=== PATIENT | male | born 1980 | race Caucasian/White ===

== ENCOUNTER → 2016-11-23 | Outpatient (CLI) | payer OTHER ==
[~2016-11-23] MED LIST: B-COTAB18 PO; CHLO50TA PO; CMPS25 PR; HYG/25 PO; METO25TA3 PO; METO50TA7 PO; OMEG10007 PO; TRAZ50TA35 PO; VITACAP37 PO
--- NOTE | 2016-11-23 07:56 | DIAGNOSTIC IMAGING REPORT ---
ABDOMEN COMPLETE (US) CLINICAL HISTORY: Epigastric pain, fatigue, vomiting. COMPARISON STUDY: No previous studies for comparison. FINDINGS: The pancreas appears sonographically normal. The gallbladder appears sonographically normal. There is no ductal dilatation. The common bile duct measures 4 mm. The spleen measures 9.8 cm in length. There is no evidence of abdominal aortic dilatation. The liver is of slightly increased echogenicity, nonspecific finding most often seen in hepatic steatosis. There are no focal hepatic masses. There is a horseshoe kidney. No renal masses are visualized. There is no hydronephrosis. IMPRESSION: 1. Horseshoe kidney 2. Ultrasonographically normal gallbladder and pancreas 3. Slight increase in hepatic echogenicity, a finding which may indicate hepatic steatosis. 4. No evidence of ductal dilatation Electronically signed by: Rm Dean M.D. 11/23/2016 7:54 AM Dictated Date/Time: 11/23/2016 7:52 AM
== END | disposition home or self-care (01) ==
LOC: C.ULTR 06:54
PROVIDERS: ATTEND Internal Medicine Gastroenterology
DX: R11.10 Vomiting, unspecified (principal); R53.83 Other fatigue; R10.13 Epigastric pain; R79.89 Other specified abnormal findings of blood chemistry; Q63.1 Lobulated, fused and horseshoe kidney

== ENCOUNTER → 2016-12-08 | Day surgery (SDC) | payer OTHER ==
[~2016-12-08] VITALS: Ht 185.4 cm; Wt 78.0 kg
[~2016-12-08] MED LIST changes: +ACETAMINOPHEN 500 MG TAB PO PRN; -CMPS25 PR; -TRAZ50TA35 PO
[2016-12-08 09:40] VITALS: BP 116/71; PULSE 72; TEMP 36.8; O2SAT 97; Ht 185.4 cm; Wt 78.0 kg
--- NOTE | 2016-12-08 11:16 | Discharge Instructions ---
Discharge Instructions Procedure Procedure Date: Dec 08, 2016. Reason for visit: Abnormal Liver Function Tests. Discharge Discharge Date: Dec 08, 2016. Discharge Diagnosis: Abnormal liver function tests Instructions Activity Recommendations: 1 Day-May resume regular activity Return to School/Work: no limitations Recommended Home Diet: Resume Previous Diet Allergies Coded Allergies: Shrimp (Verified Allergy, Unknown, HIVES, 12/08/16) Shanta Berry Recommendations: Call your doctor if: * Temperature above 101 degrees * Pain not relieved by pain medicine ordered * There is increased drainage or redness from any incision * You have any unanswered questions or concerns. Your Doctors Instructions noted above were prepared by provider Rm Dean. Patient Signature Section: Patient Instructions Signature Page Paul Irene Patient (or Guardian) Signature/Date: I have read and understand the instructions given to me by my caregivers. Caregiver/RN/Doctor Signature/Date: The above-named patient and/or guardian has received patient instructions on this date. + Original Patient Signature Page (only) stays with chart. Please make copy for patient.
[2016-12-08 11:25] VITALS: BP 126/71; PULSE 68; TEMP 37; O2SAT 99
[2016-12-08 11:39] VITALS: BP 129/66; PULSE 67; O2SAT 97
--- NOTE | 2016-12-08 11:39 | DIAGNOSTIC IMAGING REPORT ---
ULTRASOUND-GUIDED HEPATIC CORE BIOPSY CLINICAL HISTORY: Abnormal liver function tests. COMPARISON STUDY: Ultrasound dated 11/23/2016 FINDINGS: The risks of the procedure were explained to the patient. Informed consent was obtained. The patient was prepped in a sterile fashion. The skin was anesthetized 1% lidocaine. A right lobe approach was utilized with ultrasound guidance. 2 samples utilizing 18-gauge spring-loaded 2 cm throw biopsy needle were performed. There were no immediate complications. IMPRESSION: Successful 18-gauge hepatic core biopsy. Electronically signed by: Rm Dean M.D. 12/08/2016 11:37 AM Dictated Date/Time: 12/08/2016 11:36 AM
[2016-12-08 11:56] VITALS: BP 123/68; PULSE 72; O2SAT 97
[2016-12-08 12:26] VITALS: BP 122/73; PULSE 76; O2SAT 97
[2016-12-08 13:22] VITALS: BP 124/74; PULSE 75; TEMP 36.9; O2SAT 97
== END | disposition home or self-care (01) ==
LOC: C.ACU 09:08
PROVIDERS: ATTEND Internal Medicine Gastroenterology
DX: K75.81 Nonalcoholic steatohepatitis (NASH) (principal)

== ENCOUNTER 2017-03-18 07:13 | Emergency (ER) | payer OTHER ==
[~2017-03-18] VITALS: Ht 185.4 cm; Wt 91.1 kg
[~2017-03-18 07:13] MED LIST changes: -ACETAMINOPHEN 500 MG TAB PO PRN; -B-COTAB18 PO; -HYG/25 PO; -METO50TA7 PO; -OMEG10007 PO; -VITACAP37 PO
[2017-03-18 07:17] VITALS: TEMP 36.7; Ht 185.4 cm; Wt 91.1 kg
[2017-03-18] MEDS ORDERED: ERYTHROMYCIN OP OINT 5 MG/GM 3.5 GM TUBE OP ONE (07:45)
[2017-03-18 07:51] VITALS: BP 128/80; PULSE 70; O2SAT 97
--- NOTE | 2017-03-18 17:08 | EMERGENCY ROOM VISIT NOTE ---
History First contact with patient: 07:22 Chief Complaint: EYE ASSESSMENT Stated Complaint: LUMP UNDER EYE History of Present Illness The patient is a 36 year old white male who presents to the Emergency Room with complaints of discomfort and swelling under his left eye. He denies any drainage. He feels as though there may be a small lump under the eyelid. No trauma that he is aware of. He denies any change in vision. He does have seasonal allergies and is unsure if it is related. He does take Flonase but no other allergy medicine. The eye is not itchy. He is leaving for a trip and just wanted to be sure that the eye is fine. he noted some mild swelling under the right eye as well but there is no tenderness and he does not feel the lump. He denies rubbing his eyes and denies putting anything in the eyes. Review of Systems REVIEW OF SYSTEM: HEENT: No dizziness, visual problems, hearing loss, or tinnitus. There is no difficulty swallowing and no oral lesions are present. PULMONARY: No cough, shortness of breath, sputum production or hemoptysis. CARDIOVASCULAR: No chest pain, palpitations, shortness of breath or peripheral edema. GASTROINTESTINAL: No diarrhea, constipation, nausea, vomiting, or abdominal pain. GENITOURINARY: No dysuria, frequency, urgency or nocturia. NEUROLOGIC: No weakness, muscle tenderness, epilepsy or history of neurological problems. MUSCULOSKELETAL: No history of joint tenderness/swelling. No history of arthritis or arthralgias. SKIN: No rashes or lesions. ENDOCRINE: No history of diabetes, thyroid disorders, or abnormal hair growth. Past Medical/Surgical History Medical Problems: (1) Hypertension Previous surgeries: Surgery 2, left knee surgery 3, right knee surgery 1. Last tetanus 2012 Family History Unremarkable. Parents are living. Social History Smoking Status: Former Smoker Smokeless Tobacco Use: No Alcohol Use: none Drug Use: none Marital Status: Housing Status: lives with significant other Occupation Status: employed Current/Historical Medications Scheduled Chlorthalidone (Chlorthalidone), 50 MG PO DAILY Metoprolol Succ (Toprol Xl) (Toprol-Xl), 25 MG PO DAILY Allergies Coded Allergies: Shrimp (Verified Allergy, Unknown, HIVES, 12/08/16) Physical Exam Vital Signs Date Time Temp Pulse Resp B/P Pulse Ox O2 Delivery O2 Flow Rate FiO2 03/18/17 07:51 70 16 128/80 97 03/18/17 07:17 36.7 70 16 128/80 97 Room Air Right Eye Acuity: 20/30 Left Eye Acuity: 20/30 Pain Rating (0-10): 0 Physical Exam Gen.: Well developed, well-nourished, young white male, in no acute distress. Sitting on a bed. Alert and oriented. Skin:Warm and dry with good turgor. No rashes or lesions. No ecchymosis or erythema. The patient is not diaphoretic. No abrasions. Mild edema present underneath the left eye. There is also similar edema under the right eye, though not as pronounced. No warmth. No palpable mass or lump in the lower lid. No visible stye in the upper lid. HEENT: Normocephalic atraumatic. Eyes PERRLA, EOMI. No conjunctiva or scleral injection. Lids were gently everted. No stye is visible. Funduscopic exam reveals normal vasculature and a healthy looking eye. Visual acuity is 20/30. No current drainage or visible foreign material. Lymphatics are palpated without anterior or posterior chain enlargement or tenderness. Medical Decision & Procedures Medications Administered Medications (Trade) Dose Ordered Sig/Claude Route Start Time Stop Time Status Last Admin Dose Admin Erythromycin (Erythromycin Oph Oint) 1 appln NOW ONCE OP 03/18/17 07:45 03/18/17 07:46 DC 03/18/17 07:51 1 APPLN ED Course Patient was educated regarding today's findings. Conservative care measures were discussed. Possibility of a stye in the lower lid was discussed. His symptoms may also be allergy related. He should continue with his Flonase. He may add Claritin or Zyrtec if desired. I will start him on erythromycin ophthalmic ointment in the lower lid in case there is a infectious aspect of this. He'll use 1/4 inch and lower lid 3 times a day for 5 days. Follow-up with his eye doctor or return to the ED for any acute worsening of symptoms. Warm compresses to the eye may promote drainage. Tylenol and Motrin every 6 hours as needed for mild discomfort. Medical Decision Possibility of retained foreign body, sty, conjunctivitis, periorbital cellulitis, allergic reaction, edema from rubbing, and blepharitis were considered, among others Impression Primary Impression: Periorbital edema of left eye Departure Information Dispostion Home / Self-Care Condition GOOD Forms WORK / SCHOOL INSTRUCTIONS, HOME CARE DOCUMENTATION FORM, MOTRIN USE, IMPORTANT VISIT INFORMATION Patient Instructions [facility] Additional Instructions start erythromycin ointment 1/4 inch in the lower lid 3 x day x 5 days warm compresses to the eye several times per day follow up with your eye doctor or return to the ED for re-exam if the swelling or pain become worse start zyrtec or claritin once daily for seasonal allergy relief. They may also reduce your periorbital swelling avoid rubbing the lower lid, as this may increase the swelling
[2017-05-12] MEDS ORDERED: HYG/25 PO (13:39)
[2017-05-12] MEDS ORDERED: METO50TA7 PO (13:39)
[2017-05-12] MEDS ORDERED: OMEG10007 PO (13:39)
[2017-05-12] MEDS ORDERED: B-COTAB18 PO (13:39)
[2017-05-12] MEDS ORDERED: VITACAP37 PO (13:39)
== END 2017-03-18 07:51 | disposition home or self-care (01) ==
LOC: C.EDB 07:14 → C.EDA 07:51
DX: H02.845 Edema of left lower eyelid (principal); I10 Essential (primary) hypertension; Z87.891 Personal history of nicotine dependence; Z79.899 Other long term (current) drug therapy

== ENCOUNTER → 2017-04-13 | Outpatient (CLI) | payer OTHER ==
[~2017-04-13] MED LIST changes: +B-COTAB18 PO; +HYG/25 PO; +METO50TA7 PO; +OMEG10007 PO; +VITACAP37 PO
--- NOTE | 2017-04-13 13:42 | DIAGNOSTIC IMAGING REPORT ---
RIGHT KNEE 4 OR MORE CLINICAL HISTORY: RIGHT KNEE PAIN Right pain COMPARISON: None. DISCUSSION: Mild degenerative change all major joint compartments. Moderate degenerative change medial joint compartment left knee. Minimal osteophytic reaction at the level of tibial spines. No significant joint effusion. There is no evidence for soft tissue swelling. IMPRESSION: Mild degenerative change. No acute process. Electronically signed by: Vinicio Hua M.D. 04/13/2017 1:41 PM Dictated Date/Time: 04/13/2017 1:40 PM
== END | disposition home or self-care (01) ==
LOC: C.RDSM 15:26
PROVIDERS: ATTEND Physician Assistant
DX: M25.561 Pain in right knee (principal)

== ENCOUNTER → 2017-05-08 | Outpatient (CLI) | payer OTHER ==
--- NOTE | 2017-05-08 08:14 | DIAGNOSTIC IMAGING REPORT ---
RIGHT LOWER EXT JOINT WITHOUT HISTORY:36 years Male presents with acute medial right knee pain with history of prior arthroscopy. COMPARISON: Radiographs of the right knee 04/13/2017. TECHNIQUE: Multiplanar, multisequence MRI of the right knee was performed without intravenous contrast. FINDINGS: MENISCI: There is slightly increased signal within the posterior horn lateral meniscus without extension to an articular surface compatible with intrameniscal degeneration. Linear increased PD signal of the anterior horn lateral meniscus extending to the superior articular surface, well seen on image 6 of the sagittal series and image 12 of the coronal series suggests small oblique tear without displaced fragment or para meniscal cyst. There is a large horizontal undersurface tear of the posterior horn medial meniscus extending into the posterior root and posterior junction with mild associated peridiscal edema. Displaced fragment is noted within the intercondylar groove anterior to the PCL as seen on image 13 of the sagittal PD series (bucket-handle tear). Additionally, there is a small free edge tear of the anterior horn medial meniscus nicely seen on image 11 of the coronal PD series. CRUCIATE LIGAMENTS: The anterior and posterior cruciate ligaments are normal in signal, morphology and course. COLLATERAL LIGAMENTS: The popliteus tendon, biceps femoris tendon, fibular collateral ligament and iliotibial band are intact. The superficial and deep components of the medial collateral ligament are intact. EXTENSOR MECHANISM: The quadriceps and patellar tendons are intact.The medial and lateral patellar retinacula are intact. There is increased signal the suprapatellar fat nicely seen on image 10 of the sagittal T2 series suggesting fat pad impingement. KNEE JOINT: There is a moderate-sized knee joint effusion. Low to intermediate grade chondral fissuring involves the posterior weightbearing portion of the lateral femoral condyle. No osteochondral defect or high-grade chondromalacia. BONE MARROW: There is a focal area of moderate bone marrow edema involving the lateral aspect of the lateral tibial plateau. No associated fracture line. SOFT TISSUES: There is trace amount of fluid within the deep pre-patellar bursa. IMPRESSION: 1. Large horizontal undersurface tear of the posterior horn medial meniscus extends into the meniscal root and posterior junction. Displaced fragment is present within the posterior intercondylar notch (bucket-handle tear). 2. Moderate focal bone marrow edema involving the posterior lateral aspect of the lateral tibial plateau suggests bone contusion without fracture identified. 3. Suggested small oblique tear of the anterior horn lateral meniscus. 4. Free edge tear of the anterior horn medial meniscus. 5. Moderate-sized joint effusion. Electronically signed by: Sriram Solano 05/08/2017 8:13 AM Dictated Date/Time: 05/08/2017 7:58 AM
== END | disposition home or self-care (01) ==
LOC: C.MRIBC 06:46
PROVIDERS: ATTEND Physical Medicine & Rehabilitation Sports Medicine
DX: S83.241D Other tear of medial meniscus, current injury, right knee, subsequent encounter (principal); X58.XXXD Exposure to other specified factors, subsequent encounter; M25.461 Effusion, right knee

== ENCOUNTER → 2017-05-16 | Day surgery (SDC) | payer OTHER ==
[2017-05-12 13:39] VITALS: Ht 185.4 cm; Wt 81.8 kg
[~2017-05-16] VITALS: Ht 185.4 cm; Wt 81.8 kg
[~2017-05-16] MED LIST changes: +ATROPINE SULFATE 0.1 MG/ML 5ML SYR IV PRN; +BUPIVACAINE/EPINEPHRINE 0.5% MPF 1:200,000 10 ML VIAL ONE; +CEFAZOLIN 2000 MG/60 ML D5W IV SCH; -CHLO50TA PO; +DEXAMETHASONE SOD INJ 4 MG/ML VIAL ONE; +EpHEDrine SULFATE INJ 50 MG/ML AMP IV PRN; +FENTANYL CITRATE INJ 50 MCG/1 ML 2 ML VIAL IV PRN; +FENTANYL CITRATE INJ 50 MCG/1 ML 2 ML VIAL ONE; +HYDROmorphone INJ 1 MG/ML SYR IV PRN; +LACTATED RINGER'S 1000ML 1,000 ML IV SCH; +LIDOCAINE HCL 2% 2 ML VIAL (20MG/ML) ONE; -METO25TA3 PO; +MIDAZOLAM HCL 1 MG/ML 2ML VIAL ONE; +MoRPHine SULFATE PF 1 MG/ML 10 ML AMP/VIAL ONE; +ONDANSETRON INJ 2 MG/ML 2 ML VIAL IV PRN; +ONDANSETRON INJ 2 MG/ML 2 ML VIAL ONE; +OXYCODONE/ACETAMINOPHEN 5-325 TAB ONE; +OXYCODONE/ACETAMINOPHEN 5-325 TAB PO PRN; +PROPOFOL IV EMULSION 10 MG/ML 20 ML VIAL IV ONE; +SODIUM CHLORIDE 0.9% 1000ML 1,000 ML IV SCH
--- NOTE | 2017-05-16 06:28 | History & Physical Bridge Note ---
H&P Re-Evaluation Bridge Note: I have examined the patient, reviewed the History & Physical and in the interval since the performance of the History & Physical I have noted the following changes of clinical significance: No changes noted
--- NOTE | 2017-05-16 06:30 | Discharge Instructions ---
Discharge Instructions Date of Service May 16, 2017. Visit Reason for Visit: Right Knee Medial & Lateral Meniscus Tears Discharge Discharge Diagnosis / Problem: same Discharge Goals Goal(s): Decrease discomfort, Improve function Medications Stopped Medications Name(s): resume all scripts as directed Activity Recommendations Activity Limitations: as noted below Lifting Limitations: until after follow-up appointment Exercise/Sports Limitations: until after follow-up appointment May Resume Sexual Activity: when tolerated Shower/Bathe: keep incision dry Driving or Machine Use: no limitations Weightbearing Status: Right weightbearing (as tolerated) Anesthesia . Post Anesthesia Instructions: If you have had General Anesthesia or IV Sedation: * Do not drive today. * Resume driving when surgeon permits. * Do not make important decisions or sign legal documents today. * Call surgeon for: 1. Temperature elevations greater than 101 degrees F. 2. Uncontrollable pain. 3. Excessive bleeding. 4. Persistent nausea and vomiting. 5. Medication intolerance (nausea, vomiting or rash). * For nausea and vomiting use only clear liquids such as: tea, soda, bouillon until nausea subsides, then gradually increase diet as tolerated. * If you have any concerns or questions, call your surgeon's office. If physician is unavailable and it is an emergency, call 911 or go to the nearest emergency room. . Instructions / Follow-Up Instructions / Follow-Up The following are instructions to follow after your Arthroscopic Knee Surgery. ACTIVITY RECOMMENDATIONS: * Minimize activity until your first visit after surgery. * No excessive walking, jogging, sports or laboring. * Return to activity is individualized. Most patients are able to return to every day activities within one month. * Return to sports or intensive labor usually occurs at 2-3 months. * Driving is not permitted until at least your first postoperative visit at a minimum. Please ask your doctor when it is safe to resume driving. If you have an automatic vehicle and your left leg has been operated on, then you may begin driving as soon as you are comfortable and can drive safely. SCHOOL/WORK RECOMMENDATIONS: * You may return to sedentary work or school when you are feeling more comfortable. This is usually 3-7 days after surgery. * Expect increased discomfort with increased activity. Continue to elevate and ice the leg as much as possible. MEDICATIONS: * You will have a prescription for pain medication and an anti-inflammatory medication after surgery. * Use the pain medication for severe pain and the anti-inflammatory for less severe pain. Once the pain medication has run out, try to use the anti-inflammatory medication. If this is not effective, contact the office for assistance. * The pain medication may cause nausea, constipation and drowsiness. You should see how they affect you before driving or similar activity. * The anti-inflammatory medication may cause stomach upset and bleeding. If this occurs let your doctor know immediately . * Take a stool softener like Colace or a laxative like Senokot to prevent constipation. DIET: * Resume previous diet. SPECIAL CARE: ICE: You have the option of an ice cooler, gel packs or ice bags. * If you have an ice cooler, refer to the instructions for that device. The ice cooler may be used continuously. * If you do not have an ice cooler, you will need to use ice bags or gel packs. Do not apply ice directly to the skin. Use a thin dressing or marjan shirt between the skin and ice bag. Apply ice for 20-30 minutes and repeat every 2-4 hours. This is especially important for the first 7-10 days after surgery. Once the pain improves, use ice as needed. ELEVATION: * Keep your leg elevated at or above the level of your heart as much as possible. * Expect some increased discomfort and swelling if you are standing for any length of time. * When lying down, avoid placing anything under your knee. Rather, prop your leg up by placing several pillows under your heel or calf. DRESSING: * Your dressing will be changed at your first therapy appointment approximately 4-5 days after surgery. Band-aids, tape strips or gauze may be applied. You may then change your dressing daily. * Reapply dressing followed by the Tye wrap or Tubi-scrap crusher stockinet and EBIce cooling pad (if chosen). * Always wash your hands prior to touching the incision area. * Once the stitches are removed, you may leave the wound open to air or cover with an Tye wrap or Tubi-scrap crusher stockinet. * If you have been given a white elastic stocking (HARJIT hose), wear as much as possible for the first 1-3 weeks depending on swelling. * Expect some bloody drainage for the first few days after surgery. * Leave the tape strips, if present, in place for 5-7 days. * Band-aids and gauze may be changed daily. CRUTCHES: * You will need to use crutches after surgery. * You may gradually progress to full weight bearing as tolerated and wean off the crutches unless otherwise advised. * Your therapist can provide assistance weaning off crutches. * Patients who have a microfracture done may need to be toe-touch weight- bearing for 4-6 weeks. BATHING: * You may shower or sponge-bathe immediately after surgery. * The dressing will need to be covered with a plastic bag or plastic wrap until the dressing is changed on the fourth or fifth day after surgery. * Once the dressing has been changed on the fourth or fifth day after surgery, you may shower and get the incision wet. * Wash with regular soap and water. * Do not bathe (submerge the incision), soak, swim or use a hot tub until the incision is completely healed over with normal skin and the doctor has given the OK to proceed. * There is no need to apply any ointments, powders or salves to your incision. * Do not apply alcohol or hydrogen peroxide directly to the incision. * Diluted peroxide (50:50 mixture with sterile saline) may be used to clean dried blood from around the incision area. BRACE: * Bracing is generally not needed after routine Arthroscopic Knee surgery. THERAPY: * You will begin therapy four or five days after surgery. * Organized therapy with the therapist is important for the first 4-6 weeks after surgery. During that time you will attend therapy 1-3 times per week. * You will also need to do daily exercises for range of motion and strength as instructed. PROBLEMS/QUESTIONS: * If you have any problems such as severe pain, numbness, tingling or high fevers or if you have any questions, please contact the office at [phone]. * It is not uncommon to have some numbness and tingling after the surgery especially if you have had a nerve block done. This should gradually improve over the first 1- 2 days. If this persists longer or worsens please contact the office. FOLLOW UP VISIT: * If not already scheduled, please call the office at to schedule a follow-up appointment for 10 days, 6 weeks and 3 months after surgery. Diet Recommendations Recommended Home Diet: resume previous diet Procedures Procedures Performed: ascopy cleaned out meniscus tears Pending Studies Studies pending at discharge: no Medical Emergencies . Who to Call and When: Medical Emergencies: If at any time you feel your situation is an emergency, please call 911 immediately. . Non-Emergent Contact Non-Emergency issues call your: Specialist Call Non-Emergent contact if: temperature is above 101.5 . . "Provider Documentation" section prepared by Agustín Mahan. .
--- NOTE | 2017-05-16 07:31 | [facility] Post Operative Brief Note ---
Immediate Operative Summary Operative Date May 16, 2017. Pre-Operative Diagnosis Right Knee Medial and Lateral Meniscus Tears Post-Operative Diagnosis same Procedure(s) Performed Right Knee Arthroscopic, Partial Medial Menisectomy, Chondroplasty Lateral Femoral Condyle Surgeon Dr. Brittany Mahan Garnett Feeder Surgeon(s) Shane Bedoya PA-C Estimated Blood Loss Trace Findings LFC grade 3/mmtear bucket non repairable Fluids (cc crystalloids) 700cc Specimens None Drains none Anesthesia LMA/IA block Complication(s) None Disposition Recovery Room / PACU
--- NOTE | 2017-05-16 07:35 | [facility] Operative Report ---
Operative Report Date of Service May 16, 2017. Operative Report Preoperative diagnosis medial lateral meniscus tears Postoperative diagnosis: Irreparable bucket-handle tear medial meniscus grade 3 articular disease lateral femoral condyle anterior horn tearing lateral meniscus Surgeon Kalli Bdeoya Perioperative situation: Medically cleared male with intractable knee pain physical exam x-ray MRI scan consistent with the internal derangement of meniscus and cartilage will proceed with surgical treatment. Options were discussed with him concerning a continued symptoms based on degenerative disease and loss of meniscus. Operation: Patient appropriately identified surgical site verified consent verified antibiotics confirmed as being given 2 g of Ancef. Knee was then prepped and draped in usual routine fashion was injected with 20 mL of Marcaine with epinephrine and 5 mg of Duramorph. Pain control. The tourniquet was applied or utilized. Inferomedial and inferolateral portals were then marked with 3 mL half percent Marcaine and epinephrine. Anterolateral portal was made and scope inserted. Anteromedial portal was admitted for localization. A large deformed completely stretched out bucket-handle tear was identified it was reduced there was a large split posteriorly going through the body of it as well. She was very soft. Once the anterior horn was resected the shaver was able to meniscus quickly. This indicated the degree of collagen the nature duration of the meniscus. Posterior horn was interim with hand and power instrumentation. There was some minor articular lesion of the medial condyle which was incidentally debrided. The anterior cruciate ligament and PCL were normal. Lateral meniscus was resected my standard anterior pattern which was debrided with the shaver was a 1 cm area of the lateral femoral condyle centrally brings in with articular flap debrided to a stable base there was no exposed bone. It was grade 3. Knee was then closely irrigated and all instruments and fluid removed. The portals closed with 3-0 nylon just Xeroform 4 x 4 gauze sterile level ABD pads and above-knee HARJIT stockings. DVT prophylaxis per protocol. Dictated not read. Copy to Dr. davis and the hospital chart. I attest to the content of the Intraoperative Record and any orders documented therein. Any exceptions are noted below.
--- NOTE | 2017-05-16 07:44 | [facility] Operative Report ---
Operative Report Operative Date May 16, 2017. 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 Brittany Mahan Commodity Broker Surgeon(s) Shane Bedoya PA-C Estimated Blood Loss Trace Findings Right knee medial meniscal tear and DJD Fluids (cc crystalloids) 700cc Specimens None Drains none Anesthesia General Complication(s) None Disposition Recovery Room / PACU Description of Procedure This 36-year-old white male presented to the office with complaints of right knee pain after injuring himself. X-ray and MRI were obtained. He elected to proceed with surgical intervention after being educated about potential risks and outcomes. Operation: Patient was the operating room or he was given general anesthesia. He was prepped and draped in usual sterile fashion. Please see Dr. Mahan's operative report for specifics of the procedure. I was present for the entire case from initial patient positioning through final wound closure. Assistance was provided in patient positioning, arthroscopy, and final wound closure. Patient was taken to the recovery room in satisfactory condition. I attest to the content of the Intraoperative Record and any orders documented therein. Any exceptions are noted below.
[2017-05-16 08:50] VITALS: TEMP 36.7
--- NOTE | 2017-05-16 09:18 | Anesthesia Progress Nt - [facility] ---
Anesthesia Post Op Note Date & Time May 16, 2017 at 09:17 Vital Signs Pain Intensity: 4 Vital Signs Past 12 Hours Date Time Temp Pulse Resp B/P (MAP) Pulse Ox O2 Delivery O2 Flow Rate FiO2 05/16/17 08:50 36.7 76 129/87 (101) 100 Room Air 05/16/17 08:33 75 12 05/16/17 08:33 76 12 98 05/16/17 08:31 129/83 05/16/17 08:28 78 15 05/16/17 08:28 37.2 79 12 127/84 99 Room Air 05/16/17 08:28 78 15 99 05/16/17 08:26 127/84 05/16/17 08:23 76 21 05/16/17 08:23 76 21 97 05/16/17 08:21 127/86 05/16/17 08:18 77 13 05/16/17 08:18 76 13 96 05/16/17 08:16 128/83 05/16/17 08:13 80 8 99 05/16/17 08:13 81 8 05/16/17 08:11 130/87 05/16/17 08:08 77 10 05/16/17 08:08 78 10 100 05/16/17 08:06 128/86 05/16/17 08:03 76 20 100 05/16/17 08:03 74 20 05/16/17 08:01 123/86 05/16/17 07:58 74 12 05/16/17 07:58 74 12 100 05/16/17 07:56 127/82 05/16/17 07:53 82 15 05/16/17 07:53 83 15 100 05/16/17 07:51 126/82 05/16/17 07:48 83 16 100 05/16/17 07:48 81 16 05/16/17 07:46 133/77 05/16/17 07:43 72 11 05/16/17 07:43 72 11 100 05/16/17 07:41 130/89 05/16/17 07:40 132/92 05/16/17 07:38 36.4 79 16 130/92 100 Mask 6 05/16/17 06:28 37.0 84 22 141/97 (112) 96 Room Air Notes Mental Status: alert / awake / arousable, participated in evaluation Pt Amnestic to Procedure: Yes Nausea / Vomiting: adequately controlled Pain: adequately controlled Airway Patency, RR, SpO2: stable & adequate BP & HR: stable & adequate Hydration State: stable & adequate Anesthetic Complications: no major complications apparent
[2017-05-16 09:36] VITALS: BP 119/77; PULSE 74; O2SAT 96
== END | disposition home or self-care (01) ==
LOC: X.SURG 06:22
PROVIDERS: ATTEND Physical Medicine & Rehabilitation Sports Medicine
DX: S83.211A Bucket-handle tear of medial meniscus, current injury, right knee, initial encounter (principal); S83.281A Other tear of lateral meniscus, current injury, right knee, initial encounter; I10 Essential (primary) hypertension; W01.0XXA Fall on same level from slipping, tripping and stumbling without subsequent striking against object, initial encounter

== ENCOUNTER 2018-02-14 12:40 | Emergency (ER) | payer OTHER ==
[~2018-02-14] VITALS: Ht 185.4 cm; Wt 88.1 kg
[~2018-02-14 12:40] MED LIST changes: -ATROPINE SULFATE 0.1 MG/ML 5ML SYR IV PRN; -BUPIVACAINE/EPINEPHRINE 0.5% MPF 1:200,000 10 ML VIAL ONE; -CEFAZOLIN 2000 MG/60 ML D5W IV SCH; -DEXAMETHASONE SOD INJ 4 MG/ML VIAL ONE; -EpHEDrine SULFATE INJ 50 MG/ML AMP IV PRN; -FENTANYL CITRATE INJ 50 MCG/1 ML 2 ML VIAL IV PRN; -FENTANYL CITRATE INJ 50 MCG/1 ML 2 ML VIAL ONE; -HYDROmorphone INJ 1 MG/ML SYR IV PRN; -LACTATED RINGER'S 1000ML 1,000 ML IV SCH; -LIDOCAINE HCL 2% 2 ML VIAL (20MG/ML) ONE; -METO50TA7 PO; +METO50TA8 PO; -MIDAZOLAM HCL 1 MG/ML 2ML VIAL ONE; -MoRPHine SULFATE PF 1 MG/ML 10 ML AMP/VIAL ONE; -ONDANSETRON INJ 2 MG/ML 2 ML VIAL IV PRN; -ONDANSETRON INJ 2 MG/ML 2 ML VIAL ONE; -OXYCODONE/ACETAMINOPHEN 5-325 TAB ONE; -OXYCODONE/ACETAMINOPHEN 5-325 TAB PO PRN; -PROPOFOL IV EMULSION 10 MG/ML 20 ML VIAL IV ONE; -SODIUM CHLORIDE 0.9% 1000ML 1,000 ML IV SCH
[2018-02-14 12:41] VITALS: TEMP 36.5; Ht 185.4 cm; Wt 88.1 kg
--- NOTE | 2018-02-14 13:47 | DIAGNOSTIC IMAGING REPORT ---
CT HEAD WITHOUT CONTRAST (CT) CLINICAL HISTORY: Change in mental status status post head trauma COMPARISON STUDY: No previous studies for comparison. TECHNIQUE: Axial CT of the brain is performed from the vertex to the skull base. IV contrast was not administered for this examination. A dose lowering technique was utilized adhering to the principles of ALARA. CT DOSE: 537.48 mGy.cm FINDINGS: No intra or extra-axial mass lesions are visualized. There is no CT evidence of acute cortical infarction. There is no evidence of midline shift. There is no acute hemorrhage. No calvarial fractures are visualized. There is no evidence of pathologic ventricular dilatation. There is no evidence of acute sinusitis IMPRESSION: No acute intracranial findings Electronically signed by: Rm Dean M.D. 02/14/2018 1:46 PM Dictated Date/Time: 02/14/2018 1:44 PM
--- NOTE | 2018-02-14 14:07 | EMERGENCY ROOM VISIT NOTE ---
History First contact with patient: 12:48 Chief Complaint: HEADACHE Stated Complaint: HEAD ACHE History of Present Illness The patient is a 37 year old male who presents to the Emergency Room via private vehicle accompanied by [id number] with complaints of "headache". The patient states that back on Monday he was playing basketball and notes that he actually struck the front and left side of his head off of the car. He states that he has had headache, as well as vomiting today and some forgetfulness. He states that yesterday he was apparently asking the same question multiple times to his . He came today for evaluation of his head. He denies any alcohol or drug use. He denies any recent head injury. Denies any slurred speech, numbness, paresthesias or weakness. Review of Systems A complete 10-point Review of Systems was discussed with the patient, with pertinent positives and negatives listed in the History of Present Illness. All remaining Review of Systems questions can be considered negative unless otherwise specified. Past Medical/Surgical History Medical Problems: (1) Hypertension Family History No pertinent Social History Smoking Status: Former Smoker Alcohol Use: none Drug Use: none Marital Status: Housing Status: lives with significant other Occupation Status: employed Current/Historical Medications Scheduled B-Complex Vitamins (Vitamin B Complex), 1 TAB PO QAM Chlorthalidone ([place]), 25 MG PO QAM Fish Oil ([place]-3), 1 CAP PO QAM Metoprolol Succ (Toprol Xl) (Toprol-Xl), 50 MG PO QAM Vitamin E (E-400), 1 CAP PO QAM Physical Exam Vital Signs Date Time Temp Pulse Resp B/P (MAP) Pulse Ox O2 Delivery O2 Flow Rate FiO2 02/14/18 14:10 93 18 160/92 97 02/14/18 12:41 36.5 100 20 160/95 96 Room Air Physical Exam VITAL SIGNS - Vital signs and nursing notes were reviewed. Hypertensive. GENERAL -37-year-old male appearing his stated age. Communicates well with provider and answers questions appropriately. SKIN - Gross examination of the entire body surface demonstrates no lacerations to the body surface. Small abrasion and ecchymosis noted to the bridge of the nose. HEAD - Normocephalic, Atraumatic. No Pedraza's Sign or Raccoon's Eyes. No depressed skull fractures palpable. EYES - PERRL with EOMI bilaterally. Without subconjunctival hemorrhage. Palpebral conjunctiva pink and moist with no injection. EARS - No deformities of external structures noted on gross examination bilaterally. No hemotympanum present. No tympanic perforation noted. Handle of malleus, umbo, cone of light, pars tensa/flaccid all easily visualized. NOSE - Midline and without cyanosis. No epistaxis or clear watery discharge noted. Septum midline without deviation. No septal hematoma noted. No overlying ecchymosis noted. MOUTH/OROPHARYNX - Without perioral cyanosis. Tongue midline with equal elevation of palate bilaterally. No blood noted in the oropharynx. No tonsillar hypertrophy, erythema, or exudates noted. No dental fractures noted. NECK -no tenderness to palpation over the cervical spinous processes. No cervical paraspinal muscle tenderness noted. LUNGS - Chest wall symmetric without accessory muscle use, intercostals retractions, or central cyanosis. Normal vesicular breath sounds CTA B/L. No wheezes, rales, or rhonchi appreciated. CARDIAC - RRR with S1/S2. No murmur, rubs, or gallops appreciated. EXTREMITIES - No gross deformities noted of the extremities. +5/5 strength noted in UE/LE bilaterally. NEUROLOGIC - Cranial nerves II through XII grossly intact. Sensory intact to light touch throughout. PSYCH - A&O, and cooperates fully with examiner. Pt is very pleasant and interacts well with examiner. Medical Decision & Procedures ER Provider Diagnostic Interpretation: CT HEAD WITHOUT CONTRAST (CT) CLINICAL HISTORY: Change in mental status status post head trauma COMPARISON STUDY: No previous studies for comparison. TECHNIQUE: Axial CT of the brain is performed from the vertex to the skull base. IV contrast was not administered for this examination. A dose lowering technique was utilized adhering to the principles of ALARA. CT DOSE: 537.48 mGy.cm FINDINGS: No intra or extra-axial mass lesions are visualized. There is no CT evidence of acute cortical infarction. There is no evidence of midline shift. There is no acute hemorrhage. No calvarial fractures are visualized. There is no evidence of pathologic ventricular dilatation. There is no evidence of acute sinusitis IMPRESSION: No acute intracranial findings Electronically signed by: Rm Dean M.D. 02/14/2018 1:46 PM Dictated Date/Time: 02/14/2018 1:44 PM Medical Decision Patient was seen and evaluated as above in room D5. Review was performed of nursing notes and vital signs. After obtaining a thorough history and physical examination the above work up was performed. He presents to us today with forgetfulness, repetitive questioning and all of which are status post head injury. It is important to note that during triage assessment it was suspected that he smelled of alcohol. Upon my examination in the room, there also was a smell of alcohol however the patient denied any recent alcohol use or drug use. It is important to note that he does not appear to be severely intoxicated, rather he is speaking and conversing well it is just the presentation is concerning for that of potential recent alcohol ingestion and with the concern of head injury, and now vomiting, forgetfulness I did want to rule out other underlying etiologies/ verify presence of ETOH but also evaluate his potassium level and underlying metabolic functioning. It was recommended that the patient does not drive, as he indicated he drove here today. After discussing benefit versus risk of obtaining a CT scan of the patient's head secondary to his now onset of vomiting, and history will elect to perform the scan. Results as above. No acute abnormality noted. I suspect he likely is experiencing a concussion, however underlying sequelae of alcohol is not ruled out. The patient declined blood work after discussing this with him to evaluate for underlying pathology as well as it was noted he has had hypokalemia in the past as well as transaminitis. The case was also discussed with the attending physician. The patient appears stable for outpatient management with the family doctor for his head injury. The patient was educated upon management, had questions answered prior to discharge, and was discharged home in good condition. Case was discussed with the attending physician. In the evaluation and treatment of this patient, the following differential diagnoses were considered: Concussion, Contrecoup Injury, Brain Tumor, Depression, Encephalitis, Hypothyroidism, Meningitis, CVA, TIA, Migraine, Cluster Headache, Intracranial Abnormality, Intracranial Hemorrhage, Subdural Hematoma, Subarachnoid Hemorrhage, Hydrocephalus. Impression Primary Impression: Closed head injury Additional Impression: Concussion Departure Information Dispostion Home / Self-Care Condition GOOD Referrals Caden Ribeiro MD (PCP) Patient Instructions My [facility] Additional Instructions You have been treated in the Emergency Department for a Closed Head Injury. CT Scan of your head/brain demonstrated no acute bleeding or other abnormalities. This does not completely rule out the risk for future damage to the brain. You should relax in a quiet, dark place for the rest of the day. Avoid any possible triggers including: cigarette smoke, caffeine, nicotine, chocolate, wine, beer, loud noises or music, or bright lights. You should schedule a follow-up appointment in 2-3 days with your Primary Care Provider or established Neurologist for further evaluation and treatment of your Headache. Please no driving with your symptoms. Return to the Emergency Department if your current symptoms worsen despite treatment course outlined above, or if you develop any of the following symptoms : intractable pain despite aforementioned treatment course, visual disturbances , loss of vision, unilateral weakness or facial drooping, slurring of speech, loss of coordination, or loss of consciousness. Problem Qualifiers
[2018-02-14 14:10] VITALS: BP 160/92; PULSE 93; O2SAT 97
== END 2018-02-14 14:11 | disposition home or self-care (01) ==
LOC: C.EDB 12:40 → C.EDD 14:11
DX: S09.90XA Unspecified injury of head, initial encounter (principal); S06.0X0A Concussion without loss of consciousness, initial encounter; X58.XXXA Exposure to other specified factors, initial encounter; I10 Essential (primary) hypertension; Z87.891 Personal history of nicotine dependence